=== PATIENT | female | born 1980 | race Hispanic/Latino ===

== ENCOUNTER 2018-11-05 10:47 | Inpatient (IN) | payer OTHER ==
[2018-11-05 11:11] VITALS: BMI 36.3
[2018-11-05] MEDS ORDERED: Albuterol-Ipratrop 3 mg / 0.5 (3 ml) UD IH STA ×3 (11:39→13:48)
--- NOTE | 2018-11-05 11:42 | ED PDOC ---
HPI: SOB/CHF/COPD Time Seen by Provider: 11/05/18 11:32 Chief Complaint (Nursing): Respiratory Distress History Per: Patient Onset/Duration Of Symptoms: Days (9) Current Symptoms Are (Timing): Still Present Quality: Tightness Current Respiratory Medications: See Home Med List Severity: Moderate Associated Symptoms: Productive Cough. denies: Fever, Leg/Calf Pain Additional Complaint(s): SOB, wheezing cough productive yellow sputum x 9 days. Seen by Armando ASHFORD and jose'ed with Zithromax, Prednisone and nebulizers with no improvement. Denies fever. Has also had sinus congestion. H/o asthma and WTC survivor. Past Medical History Vital Signs: Last Vital Signs Temp 97.4 F L 11/05/18 11:13 Pulse 116 H 11/05/18 11:13 Resp 22 11/05/18 11:13 BP 148/102 H 11/05/18 11:13 Pulse Ox 98 11/05/18 11:13 - Medical History PMH: Asthma - Family History Family History: States: Unknown Family Hx - Allergies Allergies/Adverse Reactions: Allergies Allergy/AdvReac Type Severity Reaction Status Date / Time shellfish derived Allergy RASH Verified 11/05/18 13:10 sumatriptan [From Imitrex] Allergy SWELLING Verified 11/05/18 13:10 Review of Systems ROS Statement: Except As Marked, All Systems Reviewed And Found Negative Constitutional: Negative for: Fever Respiratory: Positive for: Cough, Shortness of Breath, Wheezing Physical Exam - Reviewed Nursing Documentation Reviewed: Yes Vital Signs Reviewed: Yes - Physical Exam Appears: Positive for: Non-toxic, No Acute Distress Head Exam: Positive for: ATRAUMATIC, NORMAL INSPECTION, NORMOCEPHALIC Skin: Positive for: Normal Color, Warm, DRY Eye Exam: Positive for: EOMI, Normal appearance, PERRL ENT: Positive for: Normal ENT Inspection. Negative for: Sinus Pain/Drainage Neck: Positive for: Normal, Painless ROM Cardiovascular/Chest: Positive for: Regular Rate, Rhythm Respiratory: Positive for: Rhonchi. Negative for: Wheezing, Respiratory Distress Gastrointestinal/Abdominal: Positive for: Normal Exam, Soft Back: Positive for: Normal Inspection Extremity: Positive for: Normal ROM. Negative for: Calf Tenderness, Swelling Neurologic/Psych: Positive for: Alert, Oriented - Laboratory Results Result Diagrams: 11/05/18 11:42 11/05/18 11:42 - ECG O2 Sat by Pulse Oximetry: 98 Medical Decision Making Medical Decision Making: Continues to wheeze post nebs, steroids and Magnesium. No infiltrate on CXR. Will admit for failed outpt tx and exacerbation asthma. Disposition - Clinical Impression Clinical Impression: Asthma, Failure of outpatient treatment - Patient ED Disposition Is Patient to be Admitted: Yes - Disposition Disposition Time: 13:50 Condition: FAIR Forms: Cloudy Days (Mal[place]ian) - Pt Status Changed To: Hospital Disposition Of: Inpatient - Admit Certification Admit to Inpatient:: After my assessment, the patient will require hospitalization for at least two midnights. This is because of the severity of symptoms shown, intensity of services needed, and/or the medical risk in this patient being treated as an outpatient. - POA Present On Arrival: None
[2018-11-05] MEDS ORDERED: Magnesium Sulfate 2 gm/50 ml 2 GM/50 ML BAG IV ONE (11:45)
[2018-11-05] MEDS ORDERED: Albuterol-Ipratrop 3 mg / 0.5 (3 ml) UD ONE ×2 (11:50→14:36)
[2018-11-05] MEDS ORDERED: Magnesium Sulfate 2 gm/50 ml 2 GM/50 ML BAG ONE (12:55)
[2018-11-05 13:33] LABS: BASO % 0.5 % (0.0-2.0); EOS % 0.1 % (0.0-4.0); HEMOGLOBIN 15.2 g/dL (12.0-16.0); LYMPH # 1.8 K/uL (1.0-4.3); MEAN CORPUSCULAR HEMOGLOBIN 28.7 pg (27.0-31.0); MEAN CORPUSCULAR HGB CONC 34.5 g/dL (33.0-37.0); MEAN PLATELET VOLUME 7.5 fl (7.2-11.7); MONO # 0.2 K/uL (0.0-0.8); MONO % 2.8 % (0.0-10.0); NEUT # 4.5 K/uL (1.8-7.0); NEUT % 68.6 % (50.0-75.0); NRBC % 0.1 % (0.0-0.0); RBC 5.29 Mil/uL (3.80-5.20); RED CELL DISTRIBUTION WIDTH 12.9 % (11.5-14.5); WHITE BLOOD COUNT 6.5 K/uL (4.8-10.8)
[2018-11-05 13:44] LABS: ALB/GLOB RATIO 1.2 (1.0-2.1); ALBUMIN 4.4 g/dL (3.5-5.0); BLOOD UREA NITROGEN 12 mg/dl (7-17); CALCIUM 9.4 mg/dL (8.4-10.2); GFR NON-AFRICAN AMERICAN > 60
[2018-11-05 13:45] LABS: ALT/SGPT 30 U/L (9-52); AST/SGOT 32 U/L (14-36)
--- NOTE | 2018-11-05 14:30 | RAD ---
Date of service: 11/05/2018 HISTORY: Cough COMPARISON: No prior. TECHNIQUE: Chest PA and lateral FINDINGS: LUNGS: No active pulmonary disease. PLEURA: No significant pleural effusion identified. No pneumothorax apparent. CARDIOVASCULAR: No aortic atherosclerotic calcification present. Normal cardiac size. No pulmonary vascular congestion. OSSEOUS STRUCTURES: No significant abnormalities. VISUALIZED UPPER ABDOMEN: Normal. OTHER FINDINGS: None. IMPRESSION: No active disease.
--- NOTE | 2018-11-05 14:49 | CARD ---
APPROVED REPORT Date of service: 11/05/2018 EKG Measurement Heart [id number] ID [id number] <Conclusion> Normal sinus rhythm Normal ECG
[2018-11-05] MEDS ORDERED: Glucagon Recombinant 1 mg Inj IM PRN (17:45)
[2018-11-05] MEDS ORDERED: Dextrose 50% SYRINGE Inj (50 ml) IV PRN (17:45)
[2018-11-05] MEDS: Sodium Chloride 0.9% 1,000 ML IV SCH (18:25)
[2018-11-05] MEDS: Insulin Lispro (humaLOG) 100 Units/ml Inj SC SCH (21:51)
[2018-11-05] MEDS ORDERED: methylPREDNISolone 60 MG in Sodium Chloride 0.9% 50 ML IV SCH (22:00)
[2018-11-05] MEDS: Budesonide 0.5 mg/2 ml Inhal Susp UD IH SCH (22:04)
[2018-11-05] MEDS: Albuterol-Ipratrop 3 mg / 0.5 (3 ml) UD INH SCH (22:04)
--- NOTE | 2018-11-05 23:17 | CP.PCM.HP ---
Past Patient History - Past Medical History & Family History Past Medical History?: No - Past Social History Smoking Status: Never Smoked - PULMONARY Hx Asthma: Yes - MUSCULOSKELETAL/RHEUMATOLOGICAL Hx Falls: No - PSYCHIATRIC Hx Substance Use: No Meds Allergies/Adverse Reactions: Allergies Allergy/AdvReac Type Severity Reaction Status Date / Time shellfish derived Allergy RASH Verified 11/05/18 13:10 sumatriptan [From Imitrex] Allergy SWELLING Verified 11/05/18 13:10 Results - Vital Signs Recent Vital Signs: Last Vital Signs Temp 97.4 F L 11/05/18 20:15 Pulse 105 H 11/05/18 20:15 Resp 18 11/05/18 21:26 BP 132/92 H 11/05/18 20:15 Pulse Ox 98 11/05/18 20:15 - Labs Result Diagrams: 11/05/18 11:42 11/05/18 11:42 Labs: Laboratory Results - last 24 hr 11/05/18 11/05/18 11/05/18 11:42 11:42 12:55 WBC 6.5 RBC 5.29 H Hgb 15.2 Hct 44.0 MCV 83.0 MCH 28.7 MCHC 34.5 RDW 12.9 Plt Count 312 MPV 7.5 Neut % (Auto) 68.6 Lymph % (Auto) 28.0 Coffee % (Auto) 2.8 Eos % (Auto) 0.1 Baso % (Auto) 0.5 Neut # (Auto) 4.5 Lymph # (Auto) 1.8 Coffee # (Auto) 0.2 Eos # (Auto) 0.0 Baso # (Auto) 0.0 Sodium 137 Potassium 3.9 Chloride 98 Carbon Dioxide 18 L Anion Gap 25 H BUN 12 Creatinine 0.5 L Est GFR ( Amer) > 60 Est GFR (Non-Af Amer) > 60 POC Glucose (mg/dL) Random Glucose 305 H Calcium 9.4 Magnesium 1.7 Total Bilirubin 0.6 AST 32 ALT 30 Alkaline Phosphatase 118 Total Protein 8.3 H Albumin 4.4 Globulin 3.8 Albumin/Globulin Ratio 1.2 Influenza Typ A,B (EIA) Negative for flu a/b 11/05/18 11/05/18 18:22 21:41 WBC RBC Hgb Hct MCV MCH MCHC RDW Plt Count MPV Neut % (Auto) Lymph % (Auto) Coffee % (Auto) Eos % (Auto) Baso % (Auto) Neut # (Auto) Lymph # (Auto) Coffee # (Auto) Eos # (Auto) Baso # (Auto) Sodium Potassium Chloride Carbon Dioxide Anion Gap BUN Creatinine Est GFR ( Amer) Est GFR (Non-Af Amer) POC Glucose (mg/dL) 387 H 249 H Random Glucose Calcium Magnesium Total Bilirubin AST ALT Alkaline Phosphatase Total Protein Albumin Globulin Albumin/Globulin Ratio Influenza Typ A,B (EIA) Assessment & Plan (1) Acute asthma exacerbation Status: Acute (2) Hyperglycemia, unspecified Assessment and Plan: Possible Newly Diagnosed DM II Status: Acute (3) Failure of outpatient treatment Status: Acute (4) Severe obesity (BMI 35.0-39.9) with comorbidity Status: Acute
[2018-11-06] MEDS: Albuterol-Ipratrop 3 mg / 0.5 (3 ml) UD INH SCH ×4 (00:36→11:06)
[2018-11-06] MEDS: Sodium Chloride 0.9% 1,000 ML IV SCH (04:07)
[2018-11-06 07:44] VITALS: RESP 20
[2018-11-06] MEDS: Budesonide 0.5 mg/2 ml Inhal Susp UD IH SCH (07:53)
[2018-11-06] MEDS: Insulin Lispro (humaLOG) 100 Units/ml Inj SC SCH ×2 (08:41→12:17)
[2018-11-06] MEDS ORDERED: Enoxaparin 40 mg Syringe SC SCH (09:00)
[2018-11-06 12:25] VITALS: BP 143/91; PULSE 110; TEMP 97.3; O2SAT 97
--- NOTE | 2018-11-07 15:58 | CP.PCM.DIS ---
Provider - Provider Date of Admission: 11/05/18 13:48 Attending physician: Ashley Grider MD Time Spent in preparation of Discharge (in minutes): 30 Diagnosis - Discharge Diagnosis (1) Acute asthma exacerbation Status: Acute Priority: High (2) Hyperglycemia, unspecified Status: Acute Priority: Medium (3) Failure of outpatient treatment Status: Acute Priority: Medium (4) Severe obesity (BMI 35.0-39.9) with comorbidity Status: Acute Priority: Medium Hospital Course - Lab Results Lab Results: Micro Results 11/06/18 12:00 Blood-Venous Blood Culture - Preliminary NO GROWTH AFTER 24 HOURS 11/05/18 12:45 Blood-Venous S.aureus & Coag-Neg Staph PNA FISH - Final TEST NOT PERFORMED 11/05/18 12:45 Blood-Venous Blood Culture - Preliminary Gram Positive Cocci 11/05/18 12:45 Blood-Venous Gram Stain - Final Most Recent Lab Values WBC 6.5 K/uL (4.8-10.8) 11/05/18 11:42 RBC 5.29 Mil/uL (3.80-5.20) H 11/05/18 11:42 Hgb 15.2 g/dL (12.0-16.0) 11/05/18 11:42 Hct 44.0 % (34.0-47.0) 11/05/18 11:42 MCV 83.0 fl (81.0-99.0) 11/05/18 11:42 MCH 28.7 pg (27.0-31.0) 11/05/18 11:42 MCHC 34.5 g/dL (33.0-37.0) 11/05/18 11:42 RDW 12.9 % (11.5-14.5) 11/05/18 11:42 Plt Count 312 K/uL (130-400) 11/05/18 11:42 MPV 7.5 fl (7.2-11.7) 11/05/18 11:42 Neut % (Auto) 68.6 % (50.0-75.0) 11/05/18 11:42 Lymph % (Auto) 28.0 % (20.0-40.0) 11/05/18 11:42 [place] % (Auto) 2.8 % (0.0-10.0) 11/05/18 11:42 Eos % (Auto) 0.1 % (0.0-4.0) 11/05/18 11:42 Baso % (Auto) 0.5 % (0.0-2.0) 11/05/18 11:42 Neut # (Auto) 4.5 K/uL (1.8-7.0) 11/05/18 11:42 Lymph # (Auto) 1.8 K/uL (1.0-4.3) 11/05/18 11:42 [place] # (Auto) 0.2 K/uL (0.0-0.8) 11/05/18 11:42 Eos # (Auto) 0.0 K/uL (0.0-0.7) 11/05/18 11:42 Baso # (Auto) 0.0 K/uL (0.0-0.2) 11/05/18 11:42 Sodium 137 mmol/l (132-148) 11/05/18 11:42 Potassium 3.9 MMOL/L (3.6-5.0) 11/05/18 11:42 Chloride 98 mmol/L (98-107) 11/05/18 11:42 Carbon Dioxide 18 mmol/L (22-30) L 11/05/18 11:42 Anion Gap 25 (10-20) H 11/05/18 11:42 BUN 12 mg/dl (7-17) 11/05/18 11:42 Creatinine 0.5 mg/dl (0.7-1.2) L 11/05/18 11:42 Est GFR ( Amer) > 60 11/05/18 11:42 Est GFR (Non-Af Amer) > 60 11/05/18 11:42 POC Glucose (mg/dL) 305 mg/dL (65-110) H 11/06/18 11:47 Random Glucose 305 mg/dL (65-105) H 11/05/18 11:42 Hemoglobin A1c 8.9 % (4.2-6.5) H 11/05/18 19:00 Calcium 9.4 mg/dL (8.4-10.2) 11/05/18 11:42 Magnesium 1.7 MG/DL (1.6-2.3) 11/05/18 11:42 Total Bilirubin 0.6 mg/dl (0.2-1.3) 11/05/18 11:42 AST 32 U/L (14-36) 11/05/18 11:42 ALT 30 U/L (9-52) 11/05/18 11:42 Alkaline Phosphatase 118 U/L (38-126) 11/05/18 11:42 Total Protein 8.3 G/DL (6.3-8.2) H 11/05/18 11:42 Albumin 4.4 g/dL (3.5-5.0) 11/05/18 11:42 Globulin 3.8 gm/dL (2.2-3.9) 11/05/18 11:42 Albumin/Globulin Ratio 1.2 (1.0-2.1) 11/05/18 11:42 Influenza Typ A,B (EIA) Negative for flu a/b (NEGATIVE) 11/05/18 12:55 Discharge Exam - Head Exam Head Exam: ATRAUMATIC, NORMAL INSPECTION, NORMOCEPHALIC Discharge Plan - Discharge Medications Prescriptions: Albuterol/Ipratropium [Duoneb 3 MG/3 Ml-0.5 MG/3 Ml 3 Ml] 3 ml IH Q6 PRN #1 neb PRN Reason: Shortness Of Breath metFORMIN [glucOPHAGE] 500 mg PO BID #60 tab Methylprednisolone [Medrol Dose Pack (21 tabs)] 4 mg PO DAILY #21 mg - Follow Up Plan Condition: FAIR Disposition: HOME/ ROUTINE Instructions: Asthma, Adult (DC) Referrals: Ashley Grider MD [Staff Provider] -
== END 2018-11-06 12:30 | disposition home or self-care (01) | DRG 203 ==
LOC: H.ER 10:47 → H.ERHOLD 13:48 → H.TEL 18:52
PROVIDERS: ADMIT Internal Medicine; ATTEND Internal Medicine
PROC: 3E0F7GC Introduction of Other Therapeutic Substance into Respiratory Tract, Via Natural or Artificial Opening (ICD-10-PCS; principal; 2018-11-05)
DX: J45.901 Unspecified asthma with (acute) exacerbation (principal); E66.01 Morbid (severe) obesity due to excess calories; J44.9 Chronic obstructive pulmonary disease, unspecified; R06.03 Acute respiratory distress; R09.81 Nasal congestion; R73.9 Hyperglycemia, unspecified; Z68.36 Body mass index [BMI] 36.0-36.9, adult